=== PATIENT | female | born 1990 | race Caucasian/White ===

== ENCOUNTER 2023-07-18 15:41 | Outpatient (CLI) | payer OTHER, SELFPAY ==
--- NOTE | ~2023-07-18 | XR_ITS ---
EXAMINATION: XR abdomen/kub 1V DATE: 07/18/2023 15:58 INDICATION: Abdominal distention. TECHNIQUE: A supine view of the abdomen on 2 radiographs was obtained. COMPARISON: None. FINDINGS: There are no dilated loops of bowel. There is a small volume of stool in the colon. There i s no visible urolithiasis. 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 IMPRESSION: 1. Normal bowel gas pattern. Reviewed, dictated and finalized at location A.
== END 2023-07-18 15:42 | disposition home or self-care (01) ==
LOC: ANHIMG 15:45
PROVIDERS: PCP Internal Medicine; Visit Provider Nurse Practitioner Family
DX: K59.00 Constipation, unspecified (principal); R14.0 Abdominal distension (gaseous)
CPT/HCPCS: 74018

== ENCOUNTER 2023-07-19 09:42 | Outpatient (NON) | payer OTHER, SELFPAY ==
[2023-07-26 18:28] LABS: Calprotectin, Stool 17 mcg/g
[2023-07-26 19:38] LABS: Pancreatic Elastase, Stool >500 mcg/g
== END 2023-07-19 09:43 | disposition home or self-care (01) ==
PROVIDERS: PCP Internal Medicine; Visit Provider Nurse Practitioner Family
DX: K58.9 Irritable bowel syndrome, unspecified (principal); R14.0 Abdominal distension (gaseous)
CPT/HCPCS: 82653; 83993

== ENCOUNTER 2024-08-20 04:49 | Inpatient (IN) | payer OTHER, SELFPAY ==
[2024-08-20] VITALS (157 sets, daily range): BP systolic 101–156; BP diastolic 56–97; PULSE 53–102; TEMP 36.4–36.8; O2SAT 95–100; BMI 29.0
--- OUTSIDE RECORDS SUMMARY | 2024-08-20 04:57 | XMS_ITS | Data Portability ---
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 Discussed plan. [email or web address] Not available 07/26/2024 11:03:10 08/09/2024 08/09/2024 Patient is __37_weeks . Discussed plan. [email or web address] Not available 08/09/2024 13:15:09 08/16/2024 08/16/2024 Patient is ___weeks . Discussed plan. [email or web address] Not available 08/16/2024 09:56:28 Plan of Treatment Reminders Order Date Submit Date Provider Last Modified By Organization Details Last Modified Time Details Appointments INDUCTION 2024 05:00A Fermin VALE MD Not available Not available Not available Lab None recorded. Referral None recorded. Procedures None recorded. Surgeries None recorded. Imaging US, obstetric , follow-up 2024 025 [email or web address] [address], [address], [place], [address], 07/26/2024 23:58:51 Medication Orders None recorded. Patient TargetsNo targets recorded. Patient InstructionsNo instructions recorded. Reason for Referral None Reported. Results Created Date Observation Date Name Description Value Unit Range Abnormal Flag Note LastModifiedBy Organization Detail LastModifiedTime 07/27/1907/26/2024 CULTU RE: GROUP B STREP SCREE N, REFLE X SUSCE PTIBI LITY result report SEE RESULT S BELOW abnormal Test: Cultu re: Group B Strep , Refle x Susce ptibi lity ([facility]/ [facility]/K [facility] ) Speci men Sourc e: Vagin a/Rec ansley Speci men Type: Vagin al/Re ctal Speci men Date: 025 1413 Resul t Date: 2024 1441 Resul t Statu s: Final resul t Abnor mal: Yes Resul ting Lab: [facility] [address] [facility] [address] Tel: CULTU RE ----- ----- ----- --- Posit rolando for Strep tococ cus agala ctiae (Grou p B) (Abno rmal) Clind amyci n is presu med to be resis tant based on detec tion of induc ible clind amyci n resis tance (D-t est posit rolando) . Eryth romyc in = resis tant. Cefaz graham may be used for intra partu m proph ylaxi s in penic illin -lavon rgic women at low risk, and Vanco mycin is recom sergio d for women at high risk for anaph ylaxi s. Susce ptibi lity testi ng is not neces daria for these drugs . Not Available [facility] (Lab) [address], [place], [address], 08/01/2024 15:43:48 07/07/1907/05/2024 US, obste tric, follo w-up No observ ation record ed. [email or web address] [address], [place], [address], 07/06/2024 22:19:32 07/07/19 25 07/06/2024 US, obste tric, follo w-up No observ ation record ed. [email or web address] [facility] [address], [place], [address], 07/06/2024 10:36:22 07/27/19 25 07/26/2024 US, obste tric, follo w-up No observ ation record ed. [email or web address] [facility] [address], [place], [address], 07/26/2024 16:08:20 07/27/19 25 07/26/2024 US, obste tric, follo w-up No observ ation record ed. [email or web address] [address], [place], [address], 07/28/2024 23:07:34 Result Notes None recorded. Problems Name Problem SNOMED Code Status Onset Date Resolution Date Notes Provider Name and Address Organization Details Recorded Time 48976929 Active 2023 Padmini Boswell [facility], [facility] 4 15:39:25 Herpes simplex 37126180 Active outbreak 03/16/24 Valacyclo vir Laila Choi [facility], [facility] 5 12:01:14 Herpes simplex 86269212 Active outbreak 03/16/24 Valacyclo vir Laila Green [facility], [facility] 5 12:01:14 Anxiety 44819583 Active txed with michael Taylor MD [address], [place], [address], [facility] 5 11:26:04 COVID-19 477132862 Active 2024 + bASA daily, serial growth Laila Choi [facility], [facility] 5 09:58:32 COVID-19 248880939 Active 2024 + bASA daily, serial growth Laila Choi [facility], [facility] 5 09:58:32 Mixed anxiety and depressiv e disorder 709568232 Active 2024 Margo Peace null, [facility] 11:53:46 Problem Notes None recorded. Procedures Surgical History Date Name Laterality Status Provider Name and Address Organization Details Recorded Time 02/12/20 24 Date of Last Pap Smear completed Padmini Boswell [facility] 02/12/2024 15:47:17 02/01/20 23 Control Implant Removal completed Eleonora Alcaraz, [facility]- [address], [place], [address], [facility] 01/31/2023 19:07:07 03/16/19 22 Control Implant Removal completed Liliana Cook [facility] 03/16/2021 12:31:02 03/16/19 22 Control Implant Insertion completed Liliana Cook [facility] 03/16/2021 12:30:59 02/20/19 12 Date of Last Colonoscopy completed Margo Peace [facility] 07/19/2024 10:05:08 02/20/19 12 Colonoscopy completed Margo Peace [facility] 07/19/2024 10:04:56 02/20/19 10 extraction of wisdom tooth completed Margo Peace [facility] 05/31/2024 12:00:48 Imaging Results None recorded. Procedure Notes None recorded. Medical Equipment None Reported. Allergies No known drug allergies Medications Name Sig Start Date Stop Date Status Note LastModified by Organization Details LastModified Time azithromy syd 250 mg tablet 12/21 completed Not Available Not Available Not Available fluconazo le 150 mg tablet TAKE 1 TABLET BY MOUTH EVERY 72 HOURS 02/11 completed Not Available Not Available Not Available metronida zole 0.75 % (37.5 mg/5 gram) vaginal gel INSERT 1 APPLICAT ORFUL VAGINALL Y EVERY DAY FOR 5 DAYS 01/15 completed Not Available Not Available Not Available metronida zole 500 mg tablet Take 1 tablet twice a day by oral route as directed for 7 days. 03/12 completed Not Available Not Available Not Available valacyclo vir 500 mg tablet 1 TABLET BID AFTER UNTIL DELIVERY 2024 active Not Available Not Available Not Avai lable spironola ctone 25 mg tablet TAKE 1 TABLET BY MOUTH EVERY DAY 09/28 completed Increase d to 50mg Not Available Not Available Not Available sertralin e 25 mg tablet TAKE 1 TABLET BY MOUTH DAILY FOR 7 DAYS THEN START 50 MG DAILY 01/31 completed Not Available Not Available Not Available sertralin e 50 mg tablet TAKE 1 TABLET BY MOUTH EVERY DAY active Not Available Not Available No t Available spironola ctone 50 mg tablet TAKE 1 TABLET BY MOUTH EVERY DAY 03/16 completed Not Available Not Available Not Available Colace active Not Available Not Availa ble Not Available active Not Available Not Avai lable Not Available Vitals Date Recorded Body height Body mass index (BMI) Body weight Systolic blood pressure Diastolic blood pressure Provider Name and Address Organization Details Last Updated DateTime 07/26/2024 162.56 cm 29.2 kg/m2 01973.7 g 127 mm[Hg] 82 mm[Hg] Padmini Boswell [facility] 5 11:04:12 Date Recorded Body height Body mass index (BMI) Body weight Systolic blood pressure Diastolic blood pressure Provider Name and Address Organization Details Last Updated DateTime 08/02/2024 162.56 cm 29.2 kg/m2 31546.7 g 125 mm[Hg] 75 mm[Hg] Giovanna Irvin [facility] 5 09:32:53 Date Recorded Body height Body mass index (BMI) Body weight Systolic blood pressure Diastolic blood pressure Provider Name and Address Organization Details Last Updated DateTime 08/09/2024 162.56 cm 29 kg/m2 52635.11 g 128 mm[Hg] 76 mm[Hg] Margo Peace [facility] 5 10:04:42 Date Recorded Body height Body mass index (BMI) Body weight Systolic blood pressure Diastolic blood pressure Provider Name and Address Organization Details Last Updated DateTime 08/16/2024 162.56 cm 29.5 kg/m2 19636.89 g 121 mm[Hg] 75 mm[Hg] Giovanna Irvin [facility] 09:56:49 Social History Question Answer Notes LastModified by Organizat ion Details LastModified Time Tobacco Smoking Status Former Smoker Margo Peace bibiana, [facility] 05/31/2024 12:00:08 Do You Have An Advance Directive? No Information not available 06/30/2020 If You Are , What Was Your Level Of Alcohol Consumption Prior To ? Occasional [email or web address] Information not available 05/31/2024 How Many Years Have You Consumed Alcohol? 10 Information not available 06/30/2020 Are You Blind Or Do You Have Difficulty Seeing? No Information not available 06/30/2020 What Is Your Level Of Caffeine Consumption? Occasional Information not available 06/30/2020 In The 14 Days Before Symptom Onset, Have You Had Close Contact With A Laboratory-confir med COVID-19 While That Case Was Ill? No Information not available 06/30/2020 In The 14 Days Before Symptom Onset, Have You Had Close Contact With A Person Who Is Under Investigation For COVID-19 While That Person Was Ill? No Information not available 06/30/2020 Have You Been To An Area Known To Be High Risk For COVID-19? No Information not available 06/30/2020 Are You Deaf Or Do You Have Serious Difficulty Hearing? No Information not available 06/30/2020 What Type Of Diet Are You Following? REGULAR Information not available 06/30/2020 What Is The Highest Grade Or Level Of School You Have Completed Or The Highest Degree You Have Received? [id number] Information not available 06/30/2020 Are There Any Guns Present In Your Home? No Information not available 06/30/2020 Do You Use Protection During Sex? Always Information not available 06/30/2020 Do You Use Your Seat Belt Or Car Seat Routinely? Yes Information not available 06/30/2020 Do You Have Smoke And Carbon Monoxide Detectors In Your Home? Yes Information not available 06/30/2020 How Much Tobacco Do You Smoke? No Information not available 06/30/2020 Do You Use Sunscreen Routinely? Yes Information not available 03/16/2021 Has Tobacco Cessation Counseling Been Provided? No [email or web address] Information not available 05/31/2024 Have You Used IV Drugs? No Information not available 06/30/2020 Do You Have Difficulty Walking Or Climbing Stairs? No [email or web address] Information not available 05/31/2024 Sex: Unknown Functional Status Question Answer Note LastModified by Organizat ion Details LastModified Time Do you use any illicit or recreational drugs? Yes [email or web address] Information not available 05/31/2024 Do you or have you ever used any other forms of tobacco or nicotine? No [email or web address] Information not available 05/31/2024 What is your level of alcohol consumption? None [email or web address] Information not available 05/31/2024 Are you able to walk? [email or web address] Information not available 06/30/2020 Are you able to care for yourself? 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 No [email or web address] Information not available 05/31/2024 What is your exercise level? Moderate Information not available 06/30/2020 Mental Status Question Answer Note LastModified by Organization D etails LastModified Time Do you feel stressed (tense, restless, nervous, or anxious, or unable to sleep at night)? [id number] Information not available 06/30/2020 Family History Relationship Description Onset Age of this Age Resolved Age Notes LastModified by Organization Details LastModified Time Sister Multiple sclerosis Not available 2020 13:11:30 Mother Hypertensive disorder Not available 2020 13:13:47 Medical History Condition Response Allergies (Food, seasonal, environmental ) N Other N Breast Cancer N Drug/Latex Allergies/Reactions N Blood Transfusion N Dermatologic Disorders N Lung Disease N Defects or Inherited Disease N Breast Problem N Gestational Diabetes N Hematologic disorders N Anesthesia Complications N History of STI Y Deep Vein Thrombosis N Polycystic ovary syndrome N Anxiety Disorder Y Autoimmune disease N Arthritis N Infertility N Polyps N Acid Reflux (GERD) N History of abnormal pap N Cancer N Stroke N Varicosities N Neurologic/Epilepsy N Endometriosis N High Cholesterol N Headaches N Fibromyalgia N Kidney Disease N Heart Problems N Kidney or Bladder Problems N Thyroid Problems N GI Problems N Eating Disorder N Anemia N Art (IVF or FET) N Psychiatric Illness N Ovarian Cancer N Diabetes N Pulmonary (TB, Asthma) N Hepatitis/Liver Disease N No Past Medical History Y Eczema N Urinary Tract Infection N Abuse/Domestic Violence N Asthma N Trauma/Violence N Depression/ depression Y Heart Disease N Pre-Eclampsia N Hypertension N Osteoporosis N Thrombophilias N Gynecological History Statement/Question Response Flow Moderate Date of Last Mammogram Date of LMP 11/18/2023 N Was last menstrual period normal Y STIs/STDs Y Date of control 04/23/2018 Date of Last Colonoscopy 02/20/2011 Abnormal Pap N On BCP's at Conception? N HPV Vaccine Y Duration of Flow (days) 3 14 Current Control Method Are cycles usually normal Y Frequency of Cycle (Q days) 28 Sexually Active? Y Menses Monthly Y Date of DEXA bone scan Age of first menstrual cycle 16 Date of Last Pap Smear 02/12/2024 Sexual Problems? N LMP Definite N Obstetrics History GPAL:G 1 P 0 0 0 0 Type Value Living 0 Total 1 Past Encounters Encounter ID Performer Location Encounter Start Date Encounter Closed Date Diagnosis/Indication Diagnosis SNOMED-CT Code Diagnosis ICD10 Code Diagnosis Note [id number] Eleonora Alcaraz [facility] [address] [address] 06/30/2020 12:58:23 06/30/2020 14:08:18 Gynecologic examination 94360519 Z01.419 Take Calcium with Vitamin D 1200mg daily if not receiving in daily diet. It is strongly advised to have an annual flu shot and up can obtain at most pharmacies . If you have not had a TDap shot in the last 10 years you should obtain one as well. Discussed with patient & provided with informatio n regarding Gardisil vaccine to prevent the 4 strains for HPV that cause cervical cancer if under age 26. Encourage safe sexual practices, to use condoms and limit partners if not already in a monogamous relationsh ip. Do monthly self breast exams. Have mammogram yearly or every other year depending on family history. BRCA testing is now available for patients with strong genetic history of female cancer. If interested contact the office. Engage in daily exercise of low impact aerobic exercise 45-60 minutes 4-5 times weekly. Avoid tobacco and illicit drugs as well as using moderation with alcohol intake less than 1-2 8 oz beverages daily. This lifestyle behavior pattern will lead to less health conditions and longer life span. If BMI greater than 25 weight watchers or dietary consult advised. Patient received above instructio ns, and questions have been answered. If you have any questions please call or respond to this email. Patient was made aware of the patient portal and may obtain a paper copy of today's plan if desired. Pap updated If wnl pap q3yrs or next one age 30yo pap/hpv. Normal pap hx Nexplanon expires 04/23/2021 (placed elsewhere) Genital he rpes simplex 84021658 A60.9 Hx HSV-1 genital No flares for at least 3yrs Ok to send meds if has a flare up. Cystic acne 41493101 L70 .0 On Nexplanon Does not want to add more hormones or switch BC methods at this time. Will do updated CMP. Will start Meds & rto x 8wks If CMP comes back abn we will call & she will d/c this medication Drink lots of water. RTO x 8wks for med check/dosa ge adjustment Counseled on medication R/B's, Most common side effects, & use. [place]. [id number] Eleonora Alcaraz , [facility] [address] [address] 09/01/2020 09:52:16 09/01/2020 10:25:30 Cystic acne 74050748 L70.0 Patient is here today for a medicaton check of Spironolac tone 50mg.She voices goals of therapy have been met with use of this therapy.Sh e denies neg side effects.Sh e is eating, drinking, sleeping well; moods are stable & periods are well regulated. Wishes to continue this method of therapy.Ap propriate to continue this medication .F/U x 6mosCMP todayNext CMP 6mos when f/u. Time spent in visit is a total of 15 mins with at least 50% of visit consisting of counseling and review of plan of care. Additional precaution katie measures were taken to minimize potential exposure to the Covid-19 virus during this patient s visit, including available hand compensator upon arrive, temperatur e check and being asked a series of screening questions. All staff wore face coverings during this encounter, as well as provided additional cleaning and sanitizing of all surfaces, including countertop s, pens, chairs, door handles, light switches, etc, prior to and following the patient s visit. [id number] Eleonora Alcaraz [facility] [address],[place] [address] 03/16/2021 10:47:03 03/17/2021 09:13:41 Screening procedure 25308151 Z13.9 Cystic acne 50871882 L70 .0 Stopped spironolac tone for acne.Switc hed her facial care routine & her face cleared up.No issues. Removal of subcutaneous contraceptive 147592120 Z30.46 Removal site was cleansed with betadine and 3cc of lidocaine used for anesthesia . Device was removed in normal fashion without difficulty . Steri stips and pressure bandage placed. Implantati on of subcutaneous contraceptive 767343100 Z30.9 Patient is here currently on her menses. She was given all the r/b/a of placement of the Nexplanon device and has signed the consent. She is fully aware of all possible side effects of the device and has decided to move forward with placement. Insertion site was cleansed with betadine and 3cc lidocaine used for anesthesia . Device was placed in the left arm per usual fashion w/o complicati on and patient instructed to f/u in one month or earlier if there are any si/sx of infection or hypersensi tivity at the insertion site. [id number] Eleonora Alcaraz [facility] [address],[place] [address] 01/31/2023 12:13:04 02/01/2023 08:42:22 Removal of subcutaneous contraceptive 146460691 Z30.46 Removal site was cleansed with betadine and 3cc of lidocaine used for anesthesia . Device was removed in normal fashion without difficulty . Steri stips and pressure bandage placed. [id number] Eleonora Aclaraz [facility] [address] [address] 06/21/2022 10:22:19 06/21/2022 10:58:05 Gynecologic examination 33029369 Z01.419 Take Calcium with Vitamin D 1200mg daily if not receiving in daily diet. It is strongly advised to have an annual flu shot and up can obtain at most pharmacies . If you have not had a TDap shot in the last 10 years you should obtain one as well. Discussed with patient & provided with informatio n regarding Gardisil vaccine to prevent the 4 strains for HPV that cause cervical cancer if under age 26. Encourage safe sexual practices, to use condoms and limit partners if not already in a monogamous relationsh ip. Do monthly self breast exams. Have mammogram yearly or every other year depending on family history. BRCA testing is now available for patients with strong genetic history of female cancer. If interested contact the office. Engage in daily exercise of low impact aerobic exercise 45-60 minutes 4-5 times weekly. Avoid tobacco and illicit drugs as well as using moderation with alcohol intake less than 1-2 8 oz beverages daily. This lifestyle behavior pattern will lead to less health conditions and longer life span. If BMI greater than 25 weight watchers or dietary consult advised. Patient received above instructio ns, and questions have been answered. If you have any questions please call or respond to this email. Patient was made aware of the patient portal and may obtain a paper copy of today's plan if desired. Pap/hpv q3yrs per asccp unless otherwise indicated. STD Screen serum screen but declined swab Genetic Screen discussed Colon Screen na Dexa Screen na Routine Labs PCP Sexually t ransmitted infectious disease 6261308 A64 Genital he rpes simplex 13900003 A60.9 Hx HSV-1 genital No flares for at least 3yrsRx sent [id number] Albert Taylor MD [facility] [address] [address] 12/11/2023 15:56:30 12/11/2023 16:57:09 Sexually transmitted infectious disease 3502208 A64 Venereal d isease screening 417299830 Z11.3 [id number] MD Nano Roque [address],[place] [address] 12/22/2023 11:27:06 12/22/2023 16:37:54 Vaginitis 34049080 N76.0 [id number] MD Nano Roque [address],[place] [address] 01/16/2024 10:53:44 01/16/2024 11:41:23 [id number] BABATUNDE VALE MD [facility] [address],[place] [address] 01/16/2024 10:55:46 01/16/2024 12:44:33 test positive 232830387 Z32.01 1. Exam today within normal limits.2. Ultrasound today confirms GA and viability. EDC . GC/Clamydi a testing done: will f/u as indicated. 4. ACOG guidelines and plan of care for reviewed with patient. All questions answered.5 . Return to office at 12 weeks for new OB visit6. Will need new OB labs at next visit.7. Genetic screening: desires at 10 weeks, orders given. screening 2437 08348 Z36.89 [id number] MD Nano Roque [address],[place] [address] 01/30/2024 10:32:40 01/30/2024 10:49:08 [id number] MD Nano Roque [address],[place] [address] 02/12/2024 14:42:47 02/12/2024 15:21:44 screening 124905447 Z36.82 Gestation period, 12 weeks 89139554 Z3A.12 [id number] MD Nano Roque [address],[place] [address] 02/12/2024 14:43:05 02/12/2024 16:25:57 Routine care 815478783 Z34.90 [id number] BABATUNDE VALE MD [facility] [address],[place] [address] 03/12/2024 09:57:25 03/12/2024 10:44:37 Routine care 656288351 Z34.91 [id number] MD Nano Roque [address],[place] [address] 03/19/2024 13:49:36 03/19/2024 14:32:11 Spotting per vagina in 295741512 O26.852 Z3A.17 [id number] MD Nano Roque [address],[place] [address] 04/12/2024 09:54:57 04/12/2024 14:06:41 screening for malformation 186510040 Z36.3 Z3A.20 [id number] MD Nano Roque [address],[place] [address] 04/12/2024 09:55:14 04/12/2024 11:27:54 Routine care 812194125 Z34.90 [id number] MD Nano Roque [address],[place] [address] 05/10/2024 11:52:52 05/10/2024 12:43:04 History of SARS-CoV-2 1354935296 53894377 Z86.16 Z3A.24 [id number] MD Nano Roque [address],[place] [address] 05/10/2024 11:53:02 05/10/2024 13:37:16 Routine care 922612032 Z34.90 [id number] Albert Taylor MD [facility] [address],[place] [address] 05/31/2024 10:46:46 05/31/2024 12:04:36 History of SARS-CoV-2 2102396035 [id number] Z86.16 Z3A.27 [id number] Odalis Pruett CNM [facility] [address],[place] [address] 05/31/2024 10:47:46 05/31/2024 12:19:59 Gestation period, 27 weeks 54986337 Z3A.27 [id number] Albert Taylor MD [facility] [address],[place] [address] 06/14/2024 11:07:44 06/14/2024 11:58:31 Third trimester 20704527 Z34.03 [id number] Albert Taylor MD [facility] [address],[place] [address] 07/05/2024 13:45:46 07/06/2024 11:21:45 History of SARS-CoV-2 4921478202 82207884 Z86.16 Z3A.32 [id number] Albert Taylor MD [facility] [address],[place] [address] 07/05/2024 13:46:06 07/05/2024 15:09:41 Third trimester 94011494 Z34.03 [id number] Odalis Pruett [facility] [address],[place] [address] 07/19/2024 09:53:35 07/19/2024 10:48:18 Gestation period, 34 weeks 59553181 Z3A.34 [id number] Albert Taylor MD [facility] [address],[place] [address] 07/26/2024 09:51:22 07/26/2024 10:32:33 Suspected damage from viral disease in mother 026006658 O35.3XX0 Z3A.35 [id number] Albert Taylor MD [facility] [address],[place] [address] 07/26/2024 09:51:33 07/26/2024 11:47:34 Third trimester 12261284 Z34.03 [id number] BABATUNDE VALE MD [facility] [address],[place] [address] 08/02/2024 09:17:34 08/02/2024 09:58:33 care status 068555919 Z34.90 [id number] Odalis Pruett CNM [facility] [address] [address] 08/09/2024 09:40:47 08/09/2024 13:18:06 Gestation period, 37 weeks [id number] Albert Taylor MD [place] [address] [address] 08/16/2024 09:38:38 08/16/2024 10:26:43 Third trimester [id number] Z34.03 Health Concerns Section Related Observation LastModified by Organization Detai ls LastModified Time None Recorded Concern Status LastModified by Organization Details LastModified Time None Recorded Advance Directives Directive N: Payers Insurance Date Sequence Insurance Name Policy Number Policy Fritz Covered Member ID Fritz Member ID Guarantor Name 08/19/2024 1 [employer] [id number] Svetlana Trujillo [id number] Svetlana Trujillo OBGyn Episode Ob Episode Information Episode Created Date Number of Fetuses Patient Bloodtype Patient rh Status Prepregnancy Weight lbs Domestic Partner Domestic Partner Phone Father Name Golf Ball Trimmer Status 02/12/20 24 1 O Positive 152 kaylin OPEN Fetus Data First Name Last Name Admitted to NICU Weight (g) Sex Living Outcome Pediatric Complications Fetus ID Race Codes Race Delivery Type [id number] Problems Problem Notes Problem Name Start Date End Date Resolution Snomed Code Not e COVID-19 04/15/2024 [id number] + bASA da rené, serial growth Herpes simplex [id number] outbr eak 03/16/24 Valacyclovir Anxiety [id number] txed with zoloft [place] Calculation Initial [place] Date Initial Exam Date Initial Exam Provider Initial Ultrasound Date Last Menstrual Period Date Ultra Sound Weeks Gestation 02/12/2024 01/16/2024 11/18/2023 8 Eighteen To Twenty Week Kingston Update Ultra Sound Date Fundal Height At Umbil Quickening Date Ultra Sound Latest Weeks Gestation Final [place] Confirmed By Final [place] Confirmed Date Final Kingston Date Ultra Sound Latest Days Gestation 0 [email or web address] 03/19/2024 08/25/19 25 0 Pre- Flowsheet Flowsheet Date 02/12/2024 Celaya Score Blood Edema Fundus Height Fundus Units Glucose Ketones Leukocytes Nitrite Labor Signs Protein Cervic Dilation Cervic Effacement Cervic Station Type Weight in lbs Pre/Post Dialysis Refused 154.046198294471 BP Diastolic BP Location Tested BP Systolic BP Type 77 L arm 127 sitting Fetus Heart Rate Present A 145 Fetus Movement A No Comments this patient is a 33 year-ol d multiparous female at 12 weeks' gestation who presents for initial care. She has a history of term vaginal births. Her medical, surgical, obstetric history is unremarkable. She is vaccinated. She was given precautions recommendations for . We talked about vaccines in . Talked about care in detail. She is having genetic testing. She had a normal 12 week ultrasound. To begin routine care. Flowsheet Date 03/12/2024 Celaya Score Blood Edema Fundus Height Fundus Units Glucose Ketones Leukocytes Nitrite Labor Signs Protein Cervic Dilation Cervic Effacement Cervic Station neg none Type Weight in lbs Pre/Post Dialysis Refused 156.828630004211 BP Diastolic BP Location Tested BP Systolic BP Type 78 L arm 120 sitting Fetus Heart Rate Present A 145 Fetus Movement A No Comments Patient c/o of lower pressur e. Has not yet felt movement. NO bleeding. Having some diarrhea, no infectious symptoms. Discussed anatomy US for next visit. RTC 4 weeks. Flowsheet Date 03/19/2024 Celaya Score Blood Edema Fundus Height Fundus Units Glucose Ketones Leukocytes Nitrite Labor Signs Protein Cervic Dilation Cervic Effacement Cervic Station Type Weight in lbs Pre/Post Dialysis Refused BP Diastolic BP Location Tested BP Systolic BP Type Fetus Heart Rate Present Fetus Movement Comments Flowsheet Date 04/12/2024 Celaya Score Blood Edema Fundus Height Fundus Units Glucose Ketones Leukocytes Nitrite Labor Signs Protein Cervic Dilation Cervic Effacement Cervic Station Type Weight in lbs Pre/Post Dialysis Refused BP Diastolic BP Location Tested BP Systolic BP Type Fetus Heart Rate Present Fetus Movement Comments Flowsheet Date 04/12/2024 Celaya Score Blood Edema Fundus Height Fundus Units Glucose Ketones Leukocytes Nitrite Labor Signs Protein Cervic Dilation Cervic Effacement Cervic Station Type Weight in lbs Pre/Post Dialysis Refused 161.040669966502 BP Diastolic BP Location Tested BP Systolic BP Type 75 L arm 131 sitting Fetus Heart Rate Present Fetus Movement A Yes Comments Flowsheet Date 05/10/2024 Celaya Score Blood Edema Fundus Height Fundus Units Glucose Ketones Leukocytes Nitrite Labor Signs Protein Cervic Dilation Cervic Effacement Cervic Station Type Weight in lbs Pre/Post Dialysis Refused BP Diastolic BP Location Tested BP Systolic BP Type Fetus Heart Rate Present Fetus Movement Comments Flowsheet Date 05/10/2024 Celaya Score Blood Edema Fundus Height Fundus Units Glucose Ketones Leukocytes Nitrite Labor Signs Protein Cervic Dilation Cervic Effacement Cervic Station Type Weight in lbs Pre/Post Dialysis Refused 162.819855919055 BP Diastolic BP Location Tested BP Systolic BP Type 77 L arm 114 sitting Fetus Heart Rate Present A 145 Fetus Movement A Yes Comments no complaints, no problems, routine care, no contractions, no vaginal bleeding, no loss of fluid, no cramping Flowsheet Date 05/31/2024 Celaya Score Blood Edema Fundus Height Fundus Units Glucose Ketones Leukocytes Nitrite Labor Signs Protein Cervic Dilation Cervic Effacement Cervic Station Type Weight in lbs Pre/Post Dialysis Refused BP Diastolic BP Location Tested BP Systolic BP Type Fetus Heart Rate Present Fetus Movement Comments Flowsheet Date 05/31/2024 Celaya Score Blood Edema Fundus Height Fundus Units Glucose Ketones Leukocytes Nitrite Labor Signs Protein Cervic Dilation Cervic Effacement Cervic Station neg none Type Weight in lbs Pre/Post Dialysis Refused 163.460351865766 BP Diastolic BP Location Tested BP Systolic BP Type 78 120 Fetus Heart Rate Present Fetus Movement A Yes Comments Patient is having ankle pain , nausea and vomiting. ok for bio freeze, ice, efw 23% education and precautions f/u 2 weeks Flowsheet Date 06/14/2024 Celaya Score Blood Edema Fundus Height Fundus Units Glucose Ketones Leukocytes Nitrite Labor Signs Protein Cervic Dilation Cervic Effacement Cervic Station 30 cm Type Weight in lbs Pre/Post Dialysis Refused Weight 166.023491448495 BP Diastolic BP Location Tested BP Systolic BP Type 75 L arm 134 sitting Fetus Heart Rate Present A 134 Present Fetus Movement A Yes Comments no complaints, no problems, routine care, no contractions, no vaginal bleeding, no loss of fluid, no cramping Flowsheet Date 07/05/2024 Celaya Score Blood Edema Fundus Height Fundus Units Glucose Ketones Leukocytes Nitrite Labor Signs Protein Cervic Dilation Cervic Effacement Cervic Station Type Weight in lbs Pre/Post Dialysis Refused BP Diastolic BP Location Tested BP Systolic BP Type Fetus Heart Rate Present Fetus Movement Comments Flowsheet Date 07/05/2024 Celaya Score Blood Edema Fundus Height Fundus Units Glucose Ketones Leukocytes Nitrite Labor Signs Protein Cervic Dilation Cervic Effacement Cervic Station Type Weight in lbs Pre/Post Dialysis Refused 167.622455719817 BP Diastolic BP Location Tested BP Systolic BP Type 77 L arm 134 sitting Fetus Heart Rate Present Fetus Movement A Yes Comments no complaints, no problems, routine care, no contractions, no vaginal bleeding, no loss of fluid, no cramping Flowsheet Date 07/19/2024 Celaya Score Blood Edema Fundus Height Fundus Units Glucose Ketones Leukocytes Nitrite Labor Signs Protein Cervic Dilation Cervic Effacement Cervic Station neg none 32 cm Type Weight in lbs Pre/Post Dialysis Refused Weight 167.796273564500 BP Diastolic BP Location Tested BP Systolic BP Type 83 118 Fetus Heart Rate Present A 135 Present Fetus Movement A Yes Comments Patient is having some heart burn, nausea and vomiting. pepcid helping ok for tums if needed, has growth us next visit discussed gbs f/u 2 weeks Flowsheet Date 07/26/2024 Celaya Score Blood Edema Fundus Height Fundus Units Glucose Ketones Leukocytes Nitrite Labor Signs Protein Cervic Dilation Cervic Effacement Cervic Station Type Weight in lbs Pre/Post Dialysis Refused BP Diastolic BP Location Tested BP Systolic BP Type Fetus Heart Rate Present Fetus Movement Comments Flowsheet Date 07/26/2024 Celaya Score Blood Edema Fundus Height Fundus Units Glucose Ketones Leukocytes Nitrite Labor Signs Protein Cervic Dilation Cervic Effacement Cervic Station 0cm 50% Type Weight in lbs Pre/Post Dialysis Refused Weight 170.342210538190 BP Diastolic BP Location Tested BP Systolic BP Type 82 L arm 127 sitting Fetus Heart Rate Present A 134 Fetus Movement A Yes Comments no complaints, no problems, routine care, no contractions, no vaginal bleeding, no loss of fluid, no cramping Flowsheet Date 08/02/2024 Celaya Score Blood Edema Fundus Height Fundus Units Glucose Ketones Leukocytes Nitrite Labor Signs Protein Cervic Dilation Cervic Effacement Cervic Station Type Weight in lbs Pre/Post Dialysis Refused Weight 170.783478775761 BP Diastolic BP Location Tested BP Systolic BP Type 75 L arm 125 sitting Fetus Heart Rate Present A 135 Fetus Movement Comments Doing well, good movem ent. No cramping or bleeding. Taking valtrex without issue. Considering EIL at due date, will discuss further next week. GBS positive, discussed antibiotics in labor. RTC 1 week. Flowsheet Date 08/09/2024 Celaya Score Blood Edema Fundus Height Fundus Units Glucose Ketones Leukocytes Nitrite Labor Signs Protein Cervic Dilation Cervic Effacement Cervic Station neg none Type Weight in lbs Pre/Post Dialysis Refused Weight 169.469679696409 BP Diastolic BP Location Tested BP Systolic BP Type 76 128 Fetus Heart Rate Present Fetus Movement A Yes Comments patient is having pressure, contractions, discharge, nausea and vomiting. valtrex bid until delivery 1/2 cm soft. +FM precautions and education f/u one week Flowsheet Date 08/16/2024 Celaya Score Blood Edema Fundus Height Fundus Units Glucose Ketones Leukocytes Nitrite Labor Signs Protein Cervic Dilation Cervic Effacement Cervic Station Type Weight in lbs Pre/Post Dialysis Refused Weight 172.214089804571 BP Diastolic BP Location Tested BP Systolic BP Type 75 L arm 121 sitting Fetus Heart Rate Present A 145 Fetus Movement A Yes Comments no complaints, no problems, routine care, no contractions, no vaginal bleeding, no loss of fluid, no cramping Menstrual History Last Menstrual Date Menses Monthly On Bcp Conception Prior Menses Frequency Hcg Plus Date Menarche Onset Age 0911/18/2023 true Delivery Information Delivery Date Delivery Type Labor Anesthesia Weeks Gestation Incision Type Labor Labor Length Hrs Delivered By Post Complications Tubal Sterilization Discharge Date Comments Discharge Information Feeding Method Contraceptive Method Maternal HG B and HCT Levels
[2024-08-20 05:32] LABS: Hematocrit 34.4 % (37.0-47.0); Hemoglobin 11.5 g/dL (12.0-15.0); Immature Granulocyte Percent A 0.5 % (0-0.5); Lymphocytes Absolute Auto 1.92 K/mm3 (0.9-3.2); Mean Corpuscular HGB Conc 33.4 g/dl (32-36); Mean Corpuscular Hemoglobin 30.7 pg (26-34); Mean Corpuscular Volume 92.0 fl (80-100); Nucleated Red Blood Cells Absolute Auto 0.000 K/mm3 (0.0-0.012); Nucleated Red Blood Cells Perc 0.0 % (0.0-0.2); Platelet Count Result 257 k/mm3 (150-375); Red Blood Count 3.74 M/mm3 (4.2-5.4); White Blood Count 9.5 K/mm3 (4.5-10.0)
[2024-08-20] MEDS: AMPICILLIN 2 GM/NS 100 ML 2 GM/100 ML BAG IVPB (05:36)
[2024-08-20] MEDS: LACTATED RINGERS 1,000 ML 125 ML IV CONT ×4 (05:36→21:16)
--- NOTE | 2024-08-20 05:40 | LDADM ---
This patient, Svetlana Trujillo, was admitted to Labor/Delivery/Recovery 106 on 08/20/24 at 04:49. Plans for labor, pain management and were discussed with patient. Patient/family oriented to hospital policies and general routines including ID bracelet, bed and alarms, visiting hours, pain management, procedures, bathroom and other care routines, personal items, smoking policy, room service/diet and guest tray routines, security routines, and visiting hours. Patient/Family are encouraged to report perceived risks to care and to ask questions if they do not understand what they are told or what they should do. See OBIX for further documentation.
[2024-08-20 06:18] LABS: Syphilis IgG/IgM Antibody Non-Reactive (Nonreactive)
[2024-08-20] MEDS: AMPICILLIN 1 GM/NS 50 ML 1 GM/50 ML BAG IVPB ×4 (09:34→22:15)
[2024-08-20] MEDS: fentaNYL CITRATE INJ (*CRX) 100 MCG/2 ML VIAL IV PUSH (12:41)
[2024-08-20] MEDS: OXYTOCIN 30 UNITS/NS 500 ML 30 UNITS/500 ML BAG IV CONT (13:20)
--- NOTE | 2024-08-20 14:09 | P.PNAN_ITS ---
Anes - Eval Pre Procedure Procedure: Labor epidural Date/Time: 08/20/24 14:09 Surgeon: Carl Preop Diagnosis: Pain during labor Pre Op Diagnosis: IOL Patient Data Age: 33 Gender: F Height: 1.63 m Weight: 76.8 kg Last Vital Signs Temp 36.5 C 08/20/24 10:32 Pulse 75 08/20/24 13:45 BP 136/87 08/20/24 13:45 O2 Del Method Room Air 08/20/24 05:45 Allergies Allergy/AdvReac Type Severity Reaction Status Date / Time No Known Allergies Allergy Verified 08/20/24 05:46 Home Medications ?Medication ?Instructions ?Recorded ?Confirmed ?Type sertraline 50 mg tablet 50 mg PO DAILY #90 tabs 04/12/24 08/20/24 Rx vit no.95-ferrous 1 tablet PO DAILY 08/13/24 08/20/24 History fumarate 28 mg-folic acid 800 mcg tablet () valacyclovir 500 mg tablet 500 mg PO Q12H 08/13/24 08/20/24 History Laboratory Tests 08/20/24 05:24 WBC 9.5 K/mm3 (4.5-10.0) RBC 3.74 L M/mm3 (4.2-5.4) Hgb 11.5 L g/dL (12.0-15.0) Hct 34.4 L % (37.0-47.0) MCV 92.0 fl (80-100) MCH 30.7 pg (26-34) MCHC 33.4 g/dl (32-36) RDW 12.7 % (11.5-14.5) Plt Count 257 k/mm3 (150-375) MPV 9.2 fl (7.4-10.4) Immature Gran % (Auto) 0.5 % (0-0.5) Neut % (Auto) 70.9 % (45.5-73.1) Lymph % (Auto) 20.3 % (18.3-44.2) [place] % (Auto) 7.5 % (2.6-8.5) Eos % (Auto) 0.4 % (0-4.4) Baso % (Auto) 0.4 % (0.2-1.2) Lymph # (Auto) 1.92 K/mm3 (0.9-3.2) [place] # (Auto) 0.7 H K/mm3 (0.1-0.6) Eos # (Auto) 0.0 K/mm3 (0-0.3) Baso # (Auto) 0.0 K/mm3 (0.0-0.1) Abs Immat Gran (auto) 0.05 H K/mm3 (0.00-0.031) Absolute Neuts (auto) 6.7 K/mm3 (1.3-6.7) Absolute Nucleated RBC 0.000 K/mm3 (0.0-0.012) Nucleated RBC % 0.0 % (0.0-0.2) Syphilis IgG/IgM Ab Non-reactive (Nonreactive) Blood Type O Positive Antibody Screen Negative Patient hx anesthesia problems: none Family hx anesthesia problems: none Results Review: All pre-operative results and documents have been reviewed as part of the pre-op erative evaluation. [facility] Past Medical History Medical History IBS (irritable bowel syndrome) Anxiety Family History Family History Mother Depression Sibling Depression Multiple sclerosis Thyroid disorder Grandparent Alcoholism Other Hypertension Social History Social History Social History: Caffeine-preworkout Smoking status: Never smoker Alcohol intake: current Alcohol use details: occasionally Substance use: never Substance use type: does not use Do You Feel Safe in your Home?: Yes Lack of Transportation: No Lack of Food: Never True Current Housing: I Have Housing Concerned About Future Housing: No Difficulty Paying Gas/Electric Bills: No Difficulty Paying for Meds: No Currently Unemployed: No Education: Trade/Vocational Certificate Difficulty w/ Childcare or Family Care: No Spiritual care concerns: No Exam Day of Procedure 08/20/24 14:09 Patient weight: overweight Heart: regular rate and rhythm Lungs: clear to auscultation Airway: Mallampati scale class II Neurological: alert and oriented
--- NOTE | 2024-08-20 14:37 | PM.IMHP ---
H&P: HPI History of Present Illness Date/Time: 08/20/24 08:25 Chief Complaint: elective induction of labor Narrative: Patient is a 33 year old at 39 weeks gestation who presents for elective induction of labor. Her has been overall uncomplicated. She denies strong contractions, leakage of fluid or vaginal bleeding. Review of Systems Review of Systems: All systems reviewed & are unremarkable except as noted in HPI and below PMFSH Past Medical History Medical History IBS (irritable bowel syndrome) Anxiety Family History Family History Mother Depression Sibling Depression Multiple sclerosis Thyroid disorder Grandparent Alcoholism Other Hypertension Social History Social History Social History: Caffeine-preworkout Smoking status: Never smoker Alcohol intake: current Alcohol use details: occasionally Substance use: never Substance use type: does not use Do You Feel Safe in your Home?: Yes Lack of Transportation: No Lack of Food: Never True Current Housing: I Have Housing Concerned About Future Housing: No Difficulty Paying Gas/Electric Bills: No Difficulty Paying for Meds: No Currently Unemployed: No Education: Trade/Vocational Certificate Difficulty w/ Childcare or Family Care: No Spiritual care concerns: No Meds Home Medications and Allergies Home Medications ?Medication ?Instructions ?Recorded ?Confirmed ?Type sertraline 50 mg tablet 50 mg PO DAILY #90 tabs 04/12/24 08/20/24 Rx vit no.95-ferrous 1 tablet PO DAILY 08/13/24 08/20/24 History fumarate 28 mg-folic acid 800 mcg tablet () valacyclovir 500 mg tablet 500 mg PO Q12H 08/13/24 08/20/24 History Allergies Allergy/AdvReac Type Severity Reaction Status Date / Time No Known Allergies Allergy Verified 08/20/24 05:46 Vital Signs Vital Signs - 24 hr 08/20/24 05:36 08/20/24 05:45 08/20/24 05:45 Temperature 98.2 F Pulse Rate 79 84 Blood Pressure 134/81 136/82 Oxygen Delivery Room Air 08/20/24 06:01 08/20/24 06:15 08/20/24 06:30 Temperature Pulse Rate 84 74 77 Blood Pressure 122/80 136/87 133/93 H Oxygen Delivery 08/20/24 06:45 08/20/24 07:00 08/20/24 07:15 Temperature Pulse Rate 72 73 80 Blood Pressure 134/87 141/85 H 131/86 Oxygen Delivery 08/20/24 07:30 08/20/24 07:45 08/20/24 08:00 Temperature Pulse Rate 86 78 78 Blood Pressure 141/91 H 137/85 125/77 Oxygen Delivery 08/20/24 08:15 08/20/24 08:30 08/20/24 08:45 Temperature Pulse Rate 79 75 67 Blood Pressure 123/76 126/70 131/83 Oxygen Delivery 08/20/24 09:01 08/20/24 10:32 08/20/24 10:52 Temperature 97.7 F Pulse Rate 84 61 Blood Pressure 131/84 122/75 Oxygen Delivery 08/20/24 12:51 08/20/24 13:00 08/20/24 13:30 Temperature Pulse Rate 79 71 66 Blood Pressure 146/86 H 119/65 130/85 Oxygen Delivery 08/20/24 13:45 08/20/24 14:15 08/20/24 14:30 Temperature Pulse Rate 75 67 70 Blood Pressure 136/87 124/69 111/56 L Oxygen Delivery Exam Const: General: comfortable and no acute distress Eyes: General: appearance normal, both eyes and all related structures Resp: Effort & Inspection: normal respiratory effort Cardio: Rate: regular rate Skin: General skin exam: normal color Psych: Mental Status: mental status grossly normal H&P: Results Labs Labs: Short CBC 08/20/24 Range/Units 05:24 WBC 9.5 (4.5-10.0) K/mm3 Hgb 11.5 L (12.0-15.0) g/dL Hct 34.4 L (37.0-47.0) % Plt Count 257 (150-375) k/mm3 Assessment and Plan Assessment and plan (1) Encounter for elective induction of labor: Code(s): Z34.90 - Encounter for supervision of normal , unspecified, unspecified trimester Status: Acute Assessment and Plan: - uncomplicated - SVE closed on admission - cytotec 50mcg buccal - FHR category I
--- NOTE | 2024-08-20 14:44 | PM.OBPNLAB ---
Pain Control Date/time seen: 08/20/24 12:44 Pain control: tolerating well Pelvic Exam Dilation (cm): 1 Effacement (%): 70 station: -3 Amniotic membrane status: Intact Comments: Kolb bulb placed without issue, inflated wtih 50cc of normal saline Contractions Monitor mode: External Contraction frequency: 2 Status status: Category l Assessment and Plan Assessment: induction ongoing Plan: continuous present management Comments: will start low dose pitocin per protocol
[2024-08-21] VITALS (21 sets, daily range): BP systolic 105–143; BP diastolic 62–95; PULSE 59–109; RESP 16–20; TEMP 36.8–37.2; O2SAT 97–99
[2024-08-21] MEDS: METHYLERGONOVINE MALEATE 0.2 MG/ML VIAL (01:03)
[2024-08-21] MEDS: LIDOCAINE 1% LOCAL INJ 20 ML VIAL (01:05)
[2024-08-21] MEDS: OXYTOCIN 30 UNITS/NS 500 ML 30 UNITS/500 ML BAG 125 UNITS IV CONT (01:15)
--- NOTE | 2024-08-21 01:19 | PM.OBPRVD ---
OB - Vaginal Delivery Note Procedure Delivery date: 08/21/24 Events: Elective Induction of Labor Induction method: Per Misoprostol Protocol Delivery augmentation: Pitocin (with ruiz bulb) Route of delivery: Episiotomy description: None Laceration Description: Perineal - 2nd Degree Delivery repair: vicryl Specimen: No Quantitative Blood Loss (ml): 300 Anesthesia type: Epidural Disposition: Floor Complications: No immediate complications Narrative: See H&P and notes for details on patient's admission and labor. She progressed to complete cervical dilation and at the appropriate time began pushing. With adequate expulsive efforts by the mother, the baby's head was delivered without difficulty. Nuchal cord was not present. The baby's right shoulder was anterior and delivered under the pubic symphysis without difficulty. The posterior shoulder and the rest of the baby delivered without difficulty. The umbilical cord was doubly clamped and cut after 60 seconds of delayed cord clamping. Care of the infant was then assumed by the nursing staff. Baby Date of : 08/21/24 Time of : 00:53 Gestational Age by Date: 39 gender: Male presentation: vertex position: Left Occiput Anterior Placenta delivery description: Expressed Cord Vessel Description: 3 Vessels and Delayed Cord Clamping
[2024-08-21] MEDS: BENZOCAINE 20% AER SPR (*SP) 56 GM CAN 1 SPRAY TOPICAL (02:00)
[2024-08-21] MEDS: IBUPROFEN 600 MG TABLET PO ×3 (02:00→19:45)
[2024-08-21] MEDS: ACETAMINOPHEN 325 MG TABLET 650 MG PO (02:00)
[2024-08-21] MEDS: WITCH HAZEL 40 PADS 1 PAD TOPICAL (02:00)
--- NOTE | 2024-08-21 07:30 | PC.NURSE ---
0730: Met with patient regarding feeding needs. She is getting ready to shower and will call out when ready for assistance. 0815: Mother called out for feeding assistance. Baby is sleepy so mom has him unswaddled in the crib. He is stirring a little bit and when we place him next to the breast, he roots and gives a few tries to latch. He is a tongue sucker and obtains a very shallow latch. After he made a few attempts to latch he fell asleep and would not open his mouth. Mom is encouraged to hold him skin to skin until he shows feeding cues and then try again. 0830: Mom called out because baby is ready to feed. He was more alert and gave several tries to latch with a small gape. He is noisy when sucking and we broke the latch. Mom was educated on tummy to tummy positioning. She already knows how to use cross cradle. Mom is shown how to bring baby back off the nipple and wait for a very big wide mouth before quickly bringing him in to latch. We obtained an optimal latch with a well maintained seal. Mom denies pinching or sharp pain. We reviewed that baby may feed as long as desired but if she is trying to keep him awake, she should try to get him to nurse for 15 minutes. Mom is encouraged that she is doing a great job and the plan for today is to continue practicing on a wide mouth. She is instructed to call at any/all feedings today when she needs assistance. Primary RN updated.
[2024-08-21] MEDS: DOCUSATE SODIUM 100 MG CAPSULE PO (08:48)
[2024-08-21] MEDS: SERTRALINE HCL 50 MG TABLET PO (08:49)
[2024-08-21] MEDS: MULTIVIT/MIN/PREN/FOL AC/IRON TABLET 1 TAB PO (08:49)
--- NOTE | 2024-08-21 14:10 | WPDANLDPN2 ---
Anes-Prog Note L&D Date/Time: 08/21/24 14:10 Comfortable throughout: labor and delivery Neuraxial method: epidural Epidural/Spinal procedure site: clean & non-tender Neuro status: Neuro function grossly intact. Cardiovascular status: normal Respiratory status: normal Airway patency: baseline Mental status: baseline Post-Op hydration status: normal Vital Signs: Last Vital Signs Temp 36.8 C 08/21/24 11:56 Pulse 85 08/21/24 11:56 Resp 18 08/21/24 11:56 BP 124/73 08/21/24 11:56 Pulse Ox 99 08/21/24 11:56 O2 Del Method Room Air 08/21/24 08:00 Pain score (VAS): 3 I/O: Intake & Output 08/20/24 08/21/24 08/21/24 23:59 07:59 15:59 Intake Total 2049 Balance 2049 Post-procedural complaints: none Patient feedback: Patient satisfied with anesthetic care.
[2024-08-22 04:58] LABS: Hematocrit 25.1 % (37.0-47.0); Hemoglobin 8.2 g/dL (12.0-15.0)
[2024-08-22] MEDS: ACETAMINOPHEN 325 MG TABLET 650 MG PO ×2 (06:28→20:44)
[2024-08-22 07:40] VITALS: BP 120/80; PULSE 85; RESP 16; TEMP 36.8; O2SAT 100
--- NOTE | 2024-08-22 08:22 | P.PNOB_ITS ---
OB - PN: Subj Subjective Date/time seen: 08/22/24 08:22 Interval history: PPD#1 s/p Doing well, pain controlled Voiding without issue, has not yet had bowel movement , doing well OB - PN: Obj Data Labs 08/22/24 03:37 Labs: Laboratory Results - last 24 hr 08/22/24 03:37 Hgb 8.2 L D Hct 25.1 L OB - PN A/P Assessment and Plan (1) Acute blood loss anemia: Code(s): D62 - Acute posthemorrhagic anemia Status: Acute Assessment and Plan: - Hgb 11.5 > 8.2 - IV venofer x1 ordered (2) (spontaneous vaginal delivery): Code(s): O80 - Encounter for full-term uncomplicated delivery Status: Acute Plan day: 1 Plan: routine care Time Spent With Patient Time: Total time spent is greater than 50% in coordination of care (as documented) at patient's floor/unit and/or counseling patient: Review of Systems 2 Review of Systems: All systems reviewed & are unremarkable except as noted in HPI and below Exam 2 Const: General: comfortable and no acute distress O rientation/consciousness: patient oriented x3 Resp: Effort & Inspection: normal respiratory effort
[2024-08-22] MEDS: DOCUSATE SODIUM 100 MG CAPSULE PO ×2 (08:39→21:53)
[2024-08-22] MEDS: SERTRALINE HCL 50 MG TABLET PO (08:39)
[2024-08-22] MEDS: MULTIVIT/MIN/PREN/FOL AC/IRON TABLET 1 TAB PO (08:39)
[2024-08-22] MEDS: IRON SUCROSE COMPLEX 200 MG in SODIUM CHLORIDE 0.9% IV 100 ML 220 MG IVPB (11:14)
[2024-08-22 12:19] VITALS: BP 120/84; PULSE 63; RESP 16; TEMP 36.8; O2SAT 98
--- NOTE | 2024-08-22 13:15 | PC.NURSE ---
1315: Met with patient regarding needs. Baby went longer than 12 hours without a void and the doctor ordered supplementation after each breastfeed. She says that her is bringing her breast pump and she will call for assistance when he arrives. 1355: Mom has baby latched in cradle on the right breast. She declines nipple pain other that tenderness and baby has an optimal latch. Baby has good, long feedings with consistent suckling. Mom believes she may have missed a wet diaper overnight. Discussed with patient the need to pump if infant isn't feeding well. However, we don't want to pump too much since infant has been stimulating the breast well at each feeding time. Mom is advised to pump a few times a day or if baby does not feed at breast for any feedings. Her is bringing the pump up from the car and she will call out when it is here. She was already measured at a 17mm so the 21mm is the recommended size. Her Hilda pump only has 24 size flanges and she is encouraged to go ahead and use those for now but to get the 21mm size for best results. Primary RN updated. 1420: Patient initiated pumping and called out when she was finished. She did not have any volume pumped, which we reviewed is normal. She also just fed baby at breast. Mom is encouraged to pump occasionally and not to let the lack of copious amounts of milk discourage her. She is right where we expect her to be and her milk will come in between days 3-5. Mom does seem disappointed after pumping though. Anticipatory guidance provided. Primary RN updated.
[2024-08-22] MEDS: IBUPROFEN 600 MG TABLET PO ×2 (16:00→21:55)
[2024-08-22 20:44] VITALS: BP 127/89; PULSE 68; RESP 18; TEMP 36.4; O2SAT 100
[2024-08-22] MEDS: BENZOCAINE 20% AER SPR (*SP) 56 GM CAN 1 SPRAY TOPICAL (20:44)
[2024-08-22] MEDS: WITCH HAZEL 40 PADS 1 PAD TOPICAL (20:44)
[2024-08-23 07:55] VITALS: BP 111/69; PULSE 59; RESP 18; TEMP 36.3; O2SAT 98
--- NOTE | 2024-08-23 09:37 | P.PNOB_ITS ---
OB - PN: Subj Subjective Date/time seen: 08/23/24 09:37 Interval history: PPD#2 s/p Doing well, pain controlled Voiding without issue , doing well Ready for discharge home OB - PN: Obj Data Labs 08/22/24 03:37 OB - PN A/P Assessment and Plan (1) (spontaneous vaginal delivery): Code(s): O80 - Encounter for full-term uncomplicated delivery Status: Acute (2) Acute blood loss anemia: Code(s): D62 - Acute posthemorrhagic anemia Status: Acute Plan day: 2 Plan: routine care and discharge home Time Spent With Patient Time: Total time spent is greater than 50% in coordination of care (as documented) at patient's floor/unit and/or counseling patient: Review of Systems 2 Review of Systems: All systems reviewed & are unremarkable except as noted in HPI and below Exam 2 Const: General: comfortable and no acute distress O rientation/consciousness: patient oriented x3 Resp: Effort & Inspection: normal respiratory effort
--- NOTE | 2024-08-23 09:40 | PM.OBDSVD ---
DS: Admitting Diagnosis Discharge Date 08/23/24 Admitting Diagnosis elective induction of labor DS: Discharge Diagnosis Discharge Diagnosis (1) (spontaneous vaginal delivery): Code(s): O80 - Encounter for full-term uncomplicated delivery Status: Acute (2) Acute blood loss anemia: Code(s): D62 - Acute posthemorrhagic anemia Status: Acute OB - DS: Summary OB Procedures : None OB Procedures Intrapartum: Spontaneous Vag Delivery OB Procedures: : None Peripartum Data Laceration Description: Perineal - 2nd Degree Episiotomy description: None Time Spent with Patient Time attestation: Total time spent providing and/or coordinating discharge services: Discharge Plan Discharge Attending physician on discharge: Cecil Henry Discharging Clinician: Cecil Henry Patient Disposition: Home Activity: may shower, as tolerated and pelvic rest Diet: as tolerated Patient Instructions: Antibiotic Form Patient Language: Mauritanian Stand Alone Forms: General Discharge Information Follow-up/Referrals: Cecil Henry MD [Physician] - Discharge Medications: New docusate sodium 100 mg Capsule 100 mg PO BID PRN (Reason: Constipation) Qty: 60 0RF ibuprofen 600 mg Tablet 600 mg PO Q6H PRN (Reason: Cramping) Qty: 30 0RF ferrous sulfate 325 mg (65 mg iron) tablet,delayed release (DR/EC) 325 mg PO DAILY Qty: 60 2RF Continued valacyclovir 500 mg tablet 500 mg PO Q12H PNV cmb#[id number]-ferrous fumarate-FA [] 28 mg iron- 800 mcg tablet 1 tablet PO DAILY sertraline 50 mg tablet 50 mg PO DAILY Qty: 90 0RF Rx Instructions: NEEDS APPOINTMENT FOR FURTHER REFILLS Date of admission: 08/20/24 04:49 Primary Care Provider: UNKNOWN,DOCTOR Admitting Provider: Cecil Henry Attending physician on admission: Cecil Henry Condition: Stable
[2024-08-23] MEDS: DOCUSATE SODIUM 100 MG CAPSULE PO (09:41)
[2024-08-23] MEDS: SERTRALINE HCL 50 MG TABLET PO (09:41)
[2024-08-23] MEDS: MULTIVIT/MIN/PREN/FOL AC/IRON TABLET 1 TAB PO (09:41)
--- NOTE | 2024-08-23 13:32 | PC.NURSE ---
Patient instructed on viewing the discharge video Mother & Baby Care, The First Two Weeks. Patient was given the opportunity and encouraged to ask questions. Patient verbalized understanding of information shared and has been given the mother/baby guide for home reference.
[2024-08-24 14:54] VITALS: BP 135/77; PULSE 95; RESP 18; TEMP 36.6; O2SAT 99
== END 2024-08-23 13:32 | disposition home or self-care (01) | DRG 806 ==
LOC: ANHLDR 04:55 → ANHOB2 08-21 05:17
PROVIDERS: Admitting Provider Obstetrics & Gynecology; Visit Provider Obstetrics & Gynecology
DX: O99.824 Streptococcus B carrier state complicating childbirth (principal); Z37.0 Single live birth; Z3A.39 39 weeks gestation of pregnancy; D62 Acute posthemorrhagic anemia; O99.02 Anemia complicating childbirth; O70.1 Second degree perineal laceration during delivery
CPT/HCPCS: 36415; 85014; 85018; 85025; 86593; 86850; 86900; 86901; A9270; J0290; J1756; J2003; J2210; J2590; J2795; J3010; J7120